=== PATIENT | male | born 1960 | race Caucasian/White ===

== ENCOUNTER 2023-09-30 08:50 | Outpatient (CLI) | payer OTHER | END 2023-09-30 08:51 | disposition home or self-care (01) | LOC: CSHMRI 08:50 | PROVIDERS: ATTEND Urology | DX: C61 Malignant neoplasm of prostate (principal) | CPT/HCPCS: 72197; 82565 ==

== ENCOUNTER 2024-08-30 12:24 | Outpatient (CLI) | payer OTHER ==
[~2024-08-30 12:24] MED LIST: Magnevist 469MG/ML 20 ML VIAL ONE
== END 2024-08-30 12:25 | disposition home or self-care (01) ==
LOC: CSHMRI 12:24
PROVIDERS: ATTEND Urology
DX: C61 Malignant neoplasm of prostate (principal); R97.20 Elevated prostate specific antigen [PSA]; R35.0 Frequency of micturition
CPT/HCPCS: 36415; 72197; 82565